=== PATIENT | female | born 2000 | race African-American/Black ===

== ENCOUNTER 2022-02-22 14:00 | Emergency (ER) | payer MEDICAID ==
[~2022-02-22] VITALS: Ht 154.9 cm; Wt 54.5 kg
[2022-02-22 15:23] LABS: BASOPHILS % (AUTO) 0.6 % (0.0-2.0); EOSINOPHILS % (AUTO) 1.6 % (1.0-6.0); HEMATOCRIT 35.7 % (36-46); HEMOGLOBIN 11.7 g/dL (12.0-16.0); LYMPHOCYTES # (AUTO) 1.8 K/uL (1.0-4.8); MEAN CORPUSCULAR HEMOGLOBIN 27.2 pg (26.0-34.0); MEAN CORPUSCULAR HGB CONC 32.8 G/dL (31.0-37.0); MEAN CORPUSCULAR VOLUME 83 fL (80-100); MONOCYTES # (AUTO) 0.5 K/uL (0.1-1.0); MONOCYTES % (AUTO) 7.6 % (2.0-9.0); NEUTROPHILS % (AUTO) 62.2 % (40.0-70.0); PLATELET COUNT (AUTO) 206 K/uL (150-450); RED BLOOD CELL COUNT(AUTO) 4.31 MIL/uL (4.00-5.20)
[2022-02-22 15:35] LABS: ANION GAP 5 mmol/L (8-16); CALCIUM, TOTAL 9.2 mg/dL (8.8-10.5); CARBON DIOXIDE 28 mmol/L (22-29); CHLORIDE 101 mmol/L (98-107); CREATININE 0.54 mg/dL (0.60-1.30); GLUCOSE,RANDOM 95 mg/dL (70-110); POTASSIUM 3.5 mmol/L (3.5-5.1); SODIUM SERUM 134 mmol/L (136-145); UREA NITROGEN, BLOOD 11 mg/dL (7-18)
[2022-02-22 15:44] LABS: GLOMERULAR FILTR. RATE CALC > 60 mL/min (>60)
[2022-02-22 16:05] LABS: HCG,QUANTITATIVE 11919 mIU/mL (0-6)
[2022-02-22 20:00] VITALS: BP 119/68
== END 2022-02-22 22:27 | disposition home or self-care (01) ==
LOC: EMS 14:03
DX: O20.0 Threatened abortion (principal); Z3A.09 9 weeks gestation of pregnancy
CPT/HCPCS: 76817; 80048; 84702; 85025; 86850; 86900; 86901; 99284